=== PATIENT | female | born 1950 | race Caucasian/White ===

== ENCOUNTER 2023-12-15 14:40 | Emergency (ER) | payer OTHER ==
[2023-12-15] MEDS ORDERED: Lidocaine 4% Patch ONE (15:18)
[2023-12-15] MEDS ORDERED: Dexamethasone 10 MG/ML VIAL ONE (15:18)
== END 2023-12-15 15:38 | disposition home or self-care (01) ==
LOC: MADERS 14:40
DX: M54.50 Low back pain, unspecified (principal); I10 Essential (primary) hypertension; F17.290 Nicotine dependence, other tobacco product, uncomplicated; Z79.899 Other long term (current) drug therapy; Z79.82 Long term (current) use of aspirin
CPT/HCPCS: 96372; 99283; J1100

== ENCOUNTER 2024-05-19 21:13 | Emergency (ER) | payer OTHER ==
[2024-05-19 22:24] LABS: #Basophils 0.1 thou/uL (0.0-0.2); #Eosinophils 0.7 thou/uL (0.0-0.7); #Lymphocytes 2.5 thou/uL (1.20-3.40); #Monocytes 0.6 thou/uL (0.11-0.59); #Neutrophils 4.6 thou/uL (1.40-6.50); %Eosinophils 8.1 % (0.0-10.0); %Lymphocytes 29.7 % (21.0-51.0); %Monocytes 6.9 % (0.0-10.0); %Neutrophils 54.3 % (42.0-75.0); Hematocrit 34.4 % (36.0-47.0); Hemoglobin 11.1 g/dL (12.0-16.0); Mean Corpuscular HGB CONC 32.1 g/dL (32.0-36.0); Mean Corpuscular Hemoglobin 30.1 pg (27.0-31.0); Mean Corpuscular Volume 93.8 fl (78.0-98.0); Mean Platelet Volume 7.3 fL (7.4-10.4); Platelet Count 223 10x3/uL (130-400); RBC Distribution Width 12.4 % (11.5-14.5); Red Blood Cell (RBC) Count 3.67 mill/uL (4.20-5.40); White Blood Cell (WBC) Count 8.4 10x3/uL (4.8-10.8)
[2024-05-19 22:44] LABS: Troponin I 0.017 ng/mL (< 0.028)
[2024-05-19 22:50] LABS: ALT (SGPT) 20 U/L (8-55); AST (SGOT) 19 U/L (5-34); Albumin 3.9 g/dL (3.4-4.8); Alkaline Phosphatase 56 U/L (40-110); Anion Gap 14 mmol/L (10-20); BUN (Urea Nitrogen) 21 mg/dL (9.8-20.1); Bilirubin, Total 0.3 mg/dL (0.2-1.2); Calc. Creatinine Clearance 0 mL/min (70-130); Calcium 8.8 mg/dL (7.8-10.44); Carbon Dioxide 19 mmol/L (23-31); Chloride 114 mmol/L (98-107); Estimated GFR 41; Glucose 98 mg/dL (83-110); Lipase 20 U/L (8-78); Magnesium 2.1 mg/dL (1.6-2.6); Potassium 4.3 mmol/L (3.5-5.1); Protein, Total 5.9 g/dL (5.8-8.1); Sodium 143 mmol/L (136-145)
[2024-05-19] MEDS ORDERED: Sodium Chloride 0.9% 1,000 ML ONE (23:35)
[2024-05-19 23:37] LABS: Bilirubin Small (Negative); Blood, Urine Negative (Negative); Glucose, Urine (Dipstick) Negative (Negative); Ketone, Urine Trace mg/dL (Negative); Leukocyte Negative (Negative); Nitrite Negative (Negative); Protein, Urine (Dipstick) 100 mg/dL (Neg-Trace); pH, Urine 6.5 (5.0-9.0)
[2024-05-19 23:38] LABS: Bacteria/HPF Rare-Few HPF (None Seen); CAUTI Indications for Culture Pelvic or flank pain; Calcium Oxalate Crystals 2+ HPF (None Seen); Clarity Cloudy (Clear); Mucous/LPF 2+ LPF (<2+); RBC/HPF 0-3 HPF (0-3); WBC/HPF 0-3 HPF (0-3)
[2024-05-19 23:40] LABS: Urine Culture Reflex No No
[2024-05-20] MEDS ORDERED: hydrALAZINE 20 MG/ML VIAL ONE (00:46)
[2024-05-20] MEDS ORDERED: Lactated Ringer's 1,000 ML ONE (01:10)
== END 2024-05-20 02:42 | disposition short-term general hospital (02) ==
LOC: MADERS 21:13
DX: T18.2XXA Foreign body in stomach, initial encounter (principal); R41.82 Altered mental status, unspecified; R53.1 Weakness; I10 Essential (primary) hypertension; F17.290 Nicotine dependence, other tobacco product, uncomplicated; Z79.899 Other long term (current) drug therapy; W44.9XXA Unspecified foreign body entering into or through a natural orifice, initial encounter
CPT/HCPCS: 36415; 51701; 70450; 71045; 74176; 80053; 81001; 83690; 83735; 83880; 84484; 85025; 93005; 96361; 96374; J0360; J7030; J7120

== ENCOUNTER 2024-05-23 17:09 | Inpatient (IN) | payer OTHER ==
[2024-05-23 19:14] VITALS: BMI 20.2
[2024-05-23] MEDS ORDERED: Ondansetron ODT 4 MG TAB PO PRN (20:13)
[2024-05-23] MEDS ORDERED: Alendronate Sodium 70 mg Tablet PO SCH (20:15)
[2024-05-23] MEDS ORDERED: Bisacodyl 5 MG TAB PO PRN (20:17)
[2024-05-23] MEDS ORDERED: Bisacodyl 10 MG SUPP PR PRN (20:17)
[2024-05-23] MEDS ORDERED: Acetaminophen 325 MG TAB PO PRN (20:17)
[2024-05-23] MEDS: Methocarbamol 500 MG TAB PO SCH (20:39)
[2024-05-23] MEDS: Atorvastatin Calcium 40 MG TAB PO SCH (20:40)
[2024-05-23] MEDS: Pregabalin 50 MG CAP PO SCH (20:40)
[2024-05-24 06:59] LABS: Amphetamine Not Detected (NotDetected); Barbiturates Screen Not Detected (NotDetected); Benzodiazepine Screen Not Detected (NotDetected); Cocaine Metabolite Screen Not Detected (NotDetected); Methadone Not Detected (NotDetected); Methamphetamine Not Detected (NotDetected); Opiate Screen Not Detected (NotDetected); Oxycodone Screen Not Detected (NotDetected); Phencyclidine (PCP) Not Detected (NotDetected); THC/Cannabinoid Screen Not Detected (NotDetected); Tricyclic Screen Not Detected (NotDetected)
[2024-05-24] MEDS: Lisinopril 20 MG TAB PO SCH (08:42)
[2024-05-24] MEDS: Amlodipine 5 MG TAB PO SCH (08:43)
[2024-05-24] MEDS: Aspirin 81 mg Enteric Coated Tablet PO SCH (08:43)
[2024-05-24] MEDS: clonazePAM 0.5 MG TAB PO SCH ×2 (10:41→20:13)
[2024-05-24] MEDS: QUETIAPINE FUMARATE 50 MG PO SCH (10:42)
[2024-05-24] MEDS: Vortioxetine Hydrobromide [Trintellix] 20 MG Tablet PO SCH (10:45)
[2024-05-24] MEDS ORDERED: QUETIAPINE FUMARATE 50 MG PO SCH (21:00)
[2024-05-25] MEDS: traMADol HCl 50 MG TAB PO PRN (16:37)
[2024-05-25] MEDS: Lorazepam 0.5 MG TAB PO SCH (20:41)
[2024-05-26] MEDS: Senokot S 8.6-50 MG TAB PO PRN (11:54)
[2024-06-02] MEDS: traZODone HCl 50 MG TAB PO PRN (20:18)
[2024-06-02] MEDS: traMADol HCl 50 MG TAB PO PRN (20:21)
[2024-06-05 06:51] VITALS: BMI 20.6
[2024-06-05 07:29] VITALS: TEMP 97.8
[2024-06-05 08:40] VITALS: BP 128/64
== END 2024-06-05 11:45 | DRG 945 ==
LOC: MADMS 19:00
PROVIDERS: ADMIT Family Medicine; ATTEND Family Medicine
PROC: F07Z9ZZ Gait Training/Functional Ambulation Treatment (ICD-10-PCS; principal; 2024-05-24)
DX: R53.81 Other malaise (principal); I69.354 Hemiplegia and hemiparesis following cerebral infarction affecting left non-dominant side; R73.03 Prediabetes; I10 Essential (primary) hypertension; G89.29 Other chronic pain; M54.50 Low back pain, unspecified; E78.5 Hyperlipidemia, unspecified; F32.A Depression, unspecified; F19.11 Other psychoactive substance abuse, in remission
CPT/HCPCS: 80306